=== PATIENT | female | born 1960 | race Two or more races ===

== ENCOUNTER 2016-09-22 16:56 | Emergency (ER) | END 2016-09-23 00:15 | disposition home or self-care (01) | DX: R53.1 Weakness (principal); N39.0 Urinary tract infection, site not specified; E11.9 Type 2 diabetes mellitus without complications; E66.9 Obesity, unspecified; F41.9 Anxiety disorder, unspecified; I10 Essential (primary) hypertension; R42 Dizziness and giddiness; Z68.34 Body mass index [BMI] 34.0-34.9, adult | CPT/HCPCS: 70450; 71010; 80053; 81001; 82962; 84443; 84484; 85025; 93005; Z7502; Z7610 ==

== ENCOUNTER 2016-11-01 12:49 | Emergency (ER) | payer OTHER ==
[~2016-11-01] VITALS: Wt 97.5 kg
[~2016-11-01 12:49] MED LIST: NITR-58 PO
[2016-11-01] MEDS ORDERED: KETOROLAC 60 MG INJ IM STA (13:28)
[2016-11-01] MEDS ORDERED: DEXAMETHASONE 10 MG/ML 1 ML INJ PO ONE (13:30)
[2016-11-01] MEDS ORDERED: KETOROLAC 30 MG INJ IV STA (13:35)
[2016-11-01] MEDS ORDERED: ONDANSETRON (ODT) 4 MG TAB ODT STA (13:35)
[2016-11-01] MEDS ORDERED: DEXAMETHASONE 10 MG/ML 1 ML INJ IV ONE (14:00)
[2016-11-01 14:21] LABS: ADD SCAN DIFF NO
[2016-11-01 14:24] LABS: BASOPHIL # 0.1 10^3/ul (0.0-0.1); BASOPHILS % 0.5 % (0.0-2.0); EOSINOPHILS % 0.3 % (0.0-7.0); HEMATOCRIT 34.7 % (37.0-47.0); HEMOGLOBIN 11.3 g/dl (12.0-16.0); LYMPHOCYTES # 1.8 10^3/ul (0.8-2.9); LYMPHOCYTES % 16.8 % (15.0-51.0); MEAN CORPUSCULAR HEMOGLOBIN 26.8 pg (29.0-33.0); MEAN CORPUSCULAR HGB CONC 32.6 g/dl (32.0-37.0); MEAN CORPUSCULAR VOLUME 82.4 fl (82.0-101.0); MEAN PLATELET VOLUME 10.7 fl (7.4-10.4); MONOCYTE # 0.5 10^3/ul (0.3-0.9); MONOCYTES % 4.6 % (0.0-11.0); NEUTROPHIL # 8.5 10^3/ul (1.6-7.5); NEUTROPHILS % 77.3 % (39.0-77.0); PLATELET COUNT 386 10^3/UL (140-415); RED BLOOD COUNT 4.21 10^6/ul (4.20-5.40); RED CELL DISTRIBUTION WIDTH 14.2 % (11.5-14.5); WHITE BLOOD COUNT 10.9 10^3/ul (4.8-10.8)
[2016-11-01 14:38] LABS: ALBUMIN 4.1 g/dl (3.3-4.9)
[2016-11-01 14:39] LABS: POTASSIUM 4.1 mmol/L (3.5-5.1)
[2016-11-01 14:41] LABS: ALBUMIN/GLOBULIN RATIO 1.17; BILIRUBIN,INDIRECT 0.3 mg/dl (0-1.1); BILIRUBIN,TOTAL 0.3 mg/dl (0.2-1.3); CREATININE 1.26 mg/dl (0.44-1.00); TOTAL PROTEIN 7.6 g/dl (6.1-8.1)
[2016-11-01 14:42] LABS: CALCIUM 9.7 mg/dl (8.4-10.2)
[2016-11-01 16:32] LABS: URINE BLOOD (Dip) POC Trace-intact (NEGATIVE)
[2016-11-01] MEDS ORDERED: PRED20TA PO (16:38)
[2016-11-01] MEDS ORDERED: METF500T4 PO (16:39)
[2016-11-01] MEDS ORDERED: NAPR-260 PO (16:39)
[2016-11-01] MEDS ORDERED: NICARDipine HCL 30 MG CAPSULE PO ONE (17:00)
--- NOTE | 2016-11-01 17:20 | ERD ---
ER Documentation Chief Complaint Date/Time DATE: 11/01/16 TIME: 17:15 Chief Complaint LOWER BACK PAIN RADIATING TO LEFT LEG, ON AND OFF X2 YEARS HPI This is a 56-year-old female that presents to the ER with lower back pain that radiates down her left leg people patient has had this pain over the last 2 years. Patient describes pain as sharp it is worse whenever she walks. Patient uses a cane to ambulate. Patient denies any fevers or chills. She denies any recent trauma. Patient also complained of bilateral leg numbness from the knees down. Patient has also had this for the last 2 years. Patient hurt her back 2 years ago while taking care of her elderly mother. Patient is also complaining of nausea. Denies any vomiting. Patient usually takes tramadol for her pain however since yesterday she has been homeless and tramadol makes her very sleepy. SHe is afraid of taking tramadol while living on the [address]. Patient is also complaining of fatigue and weakness. She denies any chest pain or shortness of breath. She denies any loss of consciousness. She denies any headaches. Patient denies any urine or bowel incontinence. ROS 12 point review of systems was done, all negative except per HPI. Medications Home Meds Active Scripts Metformin* (Glucophage*) 500 Mg Tab, 500 MG PO BID, #20 TAB Prov:MARGARETTE CASTANEDA 11/01/16 Naproxen* (Naprosyn*) 500 Mg Tablet, 500 MG PO BID Y for PAIN AND/OR INFLAMMATION, #30 TAB Prov:MARGARETTE CASTANEDA 11/01/16 Prednisone* (Prednisone*) 20 Mg Tab, 40 MG PO DAILY for 4 Days, TAB Prov:MARGARETTE CASTANEDA 11/01/16 Nitrofurantoin Monohyd Macrocr* (Macrobid*) 100 Mg Capsr, 100 MG PO HS for 7 Days, CAP Prov:ESTRADA STALLINGS MD 09/22/16 Allergies Allergies: Coded Allergies: No Known Allergy (Unverified , 09/22/16) PMhx/Soc Hx Cardiac Disorders: Yes (Hypertension) Hx Psychiatric Problems: Yes (Anxiety and depression) Hx Miscellaneous Medical Probl: Yes (Diabetes mellitus type 2) Hx Alcohol Use: No Hx Substance Use: No Hx Tobacco Use: No Physical Exam Vitals Vital Signs Date Time Temp Pulse Resp B/P Pulse Ox O2 Delivery O2 Flow Rate FiO2 11/01/16 16:53 92 18 191/100 100 Room Air 11/01/16 12:54 100.0 96 18 115/73 99 Physical Exam GENERAL: The patient is well developed and appropriate for usual state of health , in no apparent distress. NECK: C-spine is soft and supple. There is no cervical lymphadenopathy. CHEST: Clear to auscultation bilaterally. There are no rales, wheezes or rhonchi. HEART: Regular rate and rhythm. No murmurs, clicks, rubs or gallops. ABDOMEN: Soft, nontender and nondistended. Good bowel sounds. No rebound or guarding. No gross peritonitis. No gross organomegaly or masses. No Davenport sign or McBurney point tenderness. No pulsatile abdominal mass. BACK: No midline or flank tenderness to palpation over left buttock tense paraspinal muscles. Negative leg raise test. No step- offs. EXTREMITIES: Equal pulses bilaterally. There is no peripheral clubbing, cyanosis or edema. No focal swelling or erythema. Full range of motion. Grossly neurovascularly intact. NEURO: Alert and oriented. Cranial nerves II through XII are intact. Motor strength in all 4 extremities with 5/5 strength. Sensation grossly intact. Normal speech and gait. SKIN: There is no apparent rash or petechia. The skin is warm and dry. Result Diagram: 11/01/16 1410 11/01/16 1410 Results 24 hrs Laboratory Tests Test 11/01/16 14:10 11/01/16 16:30 Alanine Aminotransferase (ALT/SGPT) 18IU/L Albumin 4.1g/dl Albumin/Globulin Ratio 1.17 Alkaline Phosphatase 105IU/L Anion Gap 20 Aspartate Amino Transf (AST/SGOT) 21IU/L Basophils # 0.110^3/ul Basophils % 0.5% Blood Urea Nitrogen 31mg/dl Calcium Level 9.7mg/dl Carbon Dioxide Level 24mmol/L Chloride Level 101mmol/L Creatinine 1.26mg/dl Direct Bilirubin 0.00mg/dl Eosinophils # 0.010^3/ul Eosinophils % 0.3% Globulin 3.50g/dl Glucose Level 147mg/dl Hematocrit 34.7% Hemoglobin 11.3g/dl Indirect Bilirubin 0.3mg/dl Lymphocytes # 1.810^3/ul Lymphocytes % 16.8% Mean Corpuscular Hemoglobin 26.8pg Mean Corpuscular Hemoglobin Concent 32.6g/dl Mean Corpuscular Volume 82.4fl Mean Platelet Volume 10.7fl Monocytes # 0.510^3/ul Monocytes % 4.6% Neutrophils # 8.510^3/ul Neutrophils % 77.3% Nucleated Red Blood Cells # 0.010^3/ul Nucleated Red Blood Cells % 0.0/100WBC Platelet Count 34520^3/UL Potassium Level 4.1mmol/L Red Blood Count 4.2110^6/ul Red Cell Distribution Width 14.2% Sodium Level 141mmol/L Total Bilirubin 0.3mg/dl Total Protein 7.6g/dl White Blood Count 10.910^3/ul Bedside Urine Blood Trace-intact Bedside Urine Glucose (UA) Negative Bedside Urine Ketones (LAB) Negative Bedside Urine Leukocyte Esterase (L Trace Bedside Urine Nitrite (LAB) Negative Bedside Urine Protein (LAB) 2+ Bedside Urine pH (LAB) 5.5 Current Medications Medications (Trade) Dose Ordered Sig/Adis Route PRN Reason Start Time Stop Time Status Last Admin Dose Admin Ketorolac Tromethamine (Toradol) 60 mg ONCE STAT IM 11/01/16 13:28 11/01/16 13:39 DC Dexamethasone (Decadron) 10 mg ONCE ONCE PO 11/01/16 13:30 11/01/16 13:39 DC Ondansetron HCl (Zofran Odt) 4 mg ONCE STAT ODT 11/01/16 13:35 11/01/16 13:39 DC 11/01/16 13:50 Ketorolac Tromethamine (Toradol) 30 mg ONCE STAT IV 11/01/16 13:35 11/01/16 13:39 DC 11/01/16 13:52 Dexamethasone (Decadron) 10 mg ONCE ONCE IV 11/01/16 14:00 11/01/16 14:01 DC 11/01/16 13:51 Nicardipine HCl (Cardene) 30 mg ONCE ONCE PO 11/01/16 17:00 11/01/16 17:01 DC 11/01/16 17:02 Procedures/MDM Differential Diagnosis includes but is not limited to back strain, vertebral fracture, epidural abscess, cauda equina, herniated disc, AAA rupture, kidney stones, UTI, pyelonephritis. Back pain is likely related to sciatica. Patient does have acute on chronic back pain. At this time I do not believe that imaging is necessary as patient has had this for 2 years and she does not have a history of trauma. Patient is afebrile and well-appearing. Patient's weakness and fatigue is likely secondary to recent homelessness. An EKG was taken no ST elevation no arrhythmias no T-wave inversion, 84 beats per minutes. EKG was read by Dr. Reardon. Patient had a slight elevation in her white blood cells however this is noncontributory. She does have a little bit of anemia. There is no major electrolyte abnormalities. She does not have any evidence of infections. Patient will be sent home with naproxen and with a short course of steroids. She will also be given a refill for her metformin. I called [facility] helpline and was able to find a resource for the patient. Patient was given information on [facility]. My medical decision making was shared with the patient she understands and agrees with plan. Patient's bp was elevated upon discharge, patient however is not in a hypertensive emergency or urgency. She was given Cardene for her blood pressure. Departure Diagnosis: Primary Impression: Pain of left leg Condition: Stable Patient Instructions: Back Pain W/ Sciatica Referrals: CHRISTI MCLAIN (PCP) Additional Instructions: Call your primary care doctor TOMORROW for an appointment during the next 1-2 days.See the doctor sooner or return here if your condition worsens before your appointment time. YOU CAN GO TO THE [facility]. THEY WILL PICK YOU UP AT 6PM, 7PM, OR 8PM AT THE BUS STOP NEAR THE [place] [facility] ADDRESS: [address] [place] [address] MARGARETET OLIVARES Nov 01, 2016 17:20
[2016-11-01 18:12] VITALS: BP 187/85; PULSE 90; RESP 17
== END 2016-11-01 18:14 | disposition home or self-care (01) ==
LOC: FTE 12:49
DX: M79.605 Pain in left leg (principal); I10 Essential (primary) hypertension; E11.9 Type 2 diabetes mellitus without complications; R11.0 Nausea; Z79.84 Long term (current) use of oral hypoglycemic drugs
CPT/HCPCS: 80053; 81003; 85025; 93005; 96374; 96375; J1100; J1885; Z7502; Z7610